=== PATIENT | female | born 1975 | race Caucasian/White ===

== ENCOUNTER 2023-03-16 20:24 | Emergency (ER) | payer BC, OTHER ==
[2023-03-16] MEDS ORDERED: SODIUM CHLORIDE 1,000 ML IV STA (20:53)
[2023-03-16] MEDS ORDERED: ACETAMINOPHEN 1000 MG/100 ML BAG IVPB ONE (20:53)
[2023-03-16 21:02] VITALS: BP 117/84; PULSE 89; RESP 18; TEMP 98.1; BMI 24.7
[2023-03-16] MEDS ORDERED: ACETAMINOPHEN INJECTION 100 ML IVPB ONE (21:07)
[2023-03-16 21:38] LABS: HEMATOCRIT 39.1 % (32.4-45.2); HEMOGLOBIN 12.8 G/dL (10.7-15.3); MCH 27.5 pg (25.7-33.7); MCHC 32.8 g/dl (32.0-36.0); MEAN CELL VOLUME 83.7 fl (80-96); MEAN PLT VOLUME 8.2 fl (7.5-11.1); RBC 4.67 10^6/uL (3.60-5.2); RDW 15.5 % (11.6-15.6); WHITE BLOOD COUNT 5.7 10^3/uL (4.0-10.8)
[2023-03-16 21:48] LABS: PLATELET ESTIMATE ADEQUATE
[2023-03-16 23:01] LABS: CHLORIDE 105 mmol/L (98-107); SODIUM 140 mmol/L (136-145)
[2023-03-16 23:03] LABS: ALBUMIN 3.6 g/dl (3.4-5.0); CALCIUM 8.7 mg/dL (8.5-10.1)
[2023-03-16 23:04] LABS: ANION GAP 6 mmol/L (4-13); BLOOD UREA NITROGEN 6.3 mg/dL (7-18); CO2 29 mmol/L (21-32); GLUCOSE,RANDOM 89 mg/dL (74-106)
[2023-03-16 23:06] LABS: CREATININE 0.7 mg/dL (0.55-1.3)
[2023-03-16 23:07] LABS: SGOT/AST 15 U/L (15-37); SGPT/ALT 22 U/L (13-61)
[2023-03-16 23:08] LABS: BILIRUBIN,TOTAL 0.2 mg/dL (0.2-1); TOT PROT 6.7 g/dl (6.4-8.2)
[2023-03-16 23:09] LABS: ALK PHOS 60 U/L (45-117)
== END 2023-03-16 23:27 | disposition home or self-care (01) ==
LOC: FER 20:24
PROC: 3E033NZ Introduction of Analgesics, Hypnotics, Sedatives into Peripheral Vein, Percutaneous Approach (ICD-10-PCS; principal; 2023-03-16)
PROC: 3E0337Z Introduction of Electrolytic and Water Balance Substance into Peripheral Vein, Percutaneous Approach (ICD-10-PCS; 2023-03-16)
DX: M54.2 Cervicalgia (principal); M79.602 Pain in left arm; M54.6 Pain in thoracic spine; M54.12 Radiculopathy, cervical region
CPT/HCPCS: 36415; 71045-TC-FY; 80053; 81003; 84484; 84703; 85027; 93005; 99285-25